=== PATIENT | female | born 1975 | race Caucasian/White ===

== ENCOUNTER 2017-11-10 17:38 | Emergency (ER) | payer SELFPAY ==
[2017-11-10] MEDS ORDERED: LEVSIN/MAALOX/LIDOC VISC PO ONE (17:39)
[2017-11-10 17:42] VITALS: BP 160/60; BMI 25.6
[2017-11-10] MEDS ORDERED: LEVSIN/MAALOX/LIDOC VISC ONE (17:42)
--- NOTE | 2017-11-10 17:42 | ED.ABDFE ---
HPI - Time seen Time seen: 17:40 - Complaint Chief Complaint Doctors Comments: Patient presented to the ED today with complaint of a two history of stomach pain worse today. The pain subxiphoid; denies vomiting or diarrhea. PMH - PMH Past Medical History: Anemia Past Surgical History: Yes Surgical History: , Hysterectomy, Ortho Surgery - Family History Family Medical History: Cancer - Social History Do you use any recreational Drugs:: No ROS - Review of Systems Eyes: No Symptoms Reported ENTM: No Symptoms Reported Respiratoy: No Symptoms Reported Cardiovascular: No Symptoms Reported Gastrointestinal/Abdominal: Abdominal Pain, Nausea Genitourinary: No Symptoms Reported Neurological: No Symptoms Reported Musculoskeletal: No Symptoms Reported Integumentary: No Symptoms Reported Hematologic/Lymphatic: No Symptoms Reported Endocrine: No Symptoms Reported Psychiatric: No Symptoms Reported All Other Systems: Reviewed and Negative PE - Vital Signs Vitals: Temperature 98.2 F Pulse Rate 84 Respiratory Rate 20 Blood Pressure 160/60 O2 Sat by Pulse Oximetry 98 - General Limitations: No Limitations General Appearance: Alert - Head Head Exam: Normal Inspection, Atraumatic - Eyes Eye exam: Normal Appearance, PERRL, EOMI - ENT ENT Exam: Normal Exam - Neck Neck Exam: Normal Inspection, Full ROM - Chest Chest Inspection: Normal Inspection - Respiratory Respiratory Exam: Normal Lung Sounds Bilat Respiratory Exam: Bilateral Clear to Auscultation - Cardiovascular Cardiovascular Exam: Regular Rate - Abdominal Exam Abdominal Exam: Normal Inspection Abdominal Tenderness: Epigastrium - Rectal Rectal Exam: Deferred - Back Back Exam: Normal Inspection - Extremeties Extremities Exam: Normal Inspection - External Exam: Female: Deferred : Speculum Exam (Female): Normal Speculum Exam : Bimanual Exam (female): Deferred - Neurologic Neurological Exam: Alert, Oriented X3, CN II-XII Intact - Psychiatric Psychiatric Exam: Normal Affect - Skin Skin Exam: Warm, Dry Course - Reevaluation 1st: Unchanged ROR - Labs Reviewed Laboratory Results Reviewed?: Yes (H Pylori positive) Result Diagrams: 11/10/17 17:47 11/10/17 17:47 Laboratory: Sodium 136 mmol/L (136-145) 11/10/17 17:47 Corrected Sodium TNP 11/10/17 17:47 Potassium 4.6 mmol/L (3.5-5.1) 11/10/17 17:47 Chloride 103 mmol/L (98-107) 11/10/17 17:47 Carbon Dioxide 26.7 mmol/L (21-32) 11/10/17 17:47 BUN 18 mg/dL (7-18) 11/10/17 17:47 Creatinine 0.72 mg/dL (0.55-1.02) 11/10/17 17:47 Est GFR (MDRD) Af Amer > 60 (>60) 11/10/17 17:47 Est GFR (MDRD) Non-Af > 60 (>60) 11/10/17 17:47 Glucose 101 mg/dL (65-99) H 11/10/17 17:47 Calcium 8.9 mg/dL (8.5-10.1) 11/10/17 17:47 Corrected Calcium 9.5 mg/dL (8.5-10.1) 11/10/17 17:47 Total Bilirubin 0.30 mg/dL (0.2-1.0) 11/10/17 17:47 AST 13 Units/L (15-37) L 11/10/17 17:47 ALT 19 Units/L (12-78) 11/10/17 17:47 Alkaline Phosphatase 80 Units/L (46-116) 11/10/17 17:47 C-Reactive Protein 3.90 mg/L (0-3.0) H 11/10/17 17:47 Total Protein 7.4 g/dL (6.4-8.2) 11/10/17 17:47 Albumin 3.3 g/dL (3.4-5.0) L 11/10/17 17:47 Globulin 4.1 g/dL (2.5-4.5) 11/10/17 17:47 Albumin/Globulin Ratio 0.8 Ratio (1.1-2.1) L 11/10/17 17:47 Amylase 46 Units/L (25-115) 11/10/17 17:47 Lipase 130 Units/L (73-393) 11/10/17 17:47 H. pylori IgG Antibody Positive (NEGATIVE) A 11/10/17 17:47 - Discharge Plan Condition: Stable - Follow ups/Referrals Follow ups/Referrals: DIONTE HARKINS [Primary Care Provider] - 3 days - Instructions
[2017-11-10 17:55] LABS: BASOPHILS # (AUTO) 0.1 X10^3/uL (0.0-0.1); BASOPHILS % (AUTO) 0.8 % (0.2-1.0); EOSINOPHILS # (AUTO) 0.1 x10^3/uL (0.0-0.2); EOSINOPHILS % (AUTO) 0.6 % (0.9-2.9); HEMATOCRIT 32.2 % (36.0-47.0); HEMOGLOBIN 10.6 g/dL (12.0-16.0); LYMPHOCYTES # (AUTO) 2.4 X10^3/uL (1.3-2.9); LYMPHOCYTES % (AUTO) 25.1 % (21.0-51.0); MEAN CORPUSCULAR HEMOGLOBIN 24.1 pg (27.0-34.0); MEAN PLATELET VOLUME 9.3 fL (7.4-11.0); MONOCYTES # (AUTO) 0.4 x10^3/uL (0.3-0.8); NEUTROPHILS # (AUTO) 6.8 x10^3/uL (2.2-4.8); NEUTROPHILS % (AUTO) 69.5 % (42.0-75.0); PLATELET COUNT 346 X10^3/uL (150.0-450.0); RED BLOOD COUNT 4.42 X10^6/uL (3.5-5.4); WHITE BLOOD COUNT 9.7 X10^3/uL (3.6-10.0)
[2017-11-10] MEDS ORDERED: BENTYL I.M. INJ 10 MG IM ONE ×2 (18:00→18:28)
[2017-11-10 18:07] LABS: ALANINE AMINOTRANSFERASE 19 Units/L (12-78); ALBUMIN 3.3 g/dL (3.4-5.0); ALKALINE PHOSPHATASE 80 Units/L (46-116); AMYLASE 46 Units/L (25-115); ASPARTATE AMINO TRANSFERASE 13 Units/L (15-37); BLOOD UREA NITROGEN 18 mg/dL (7-18); CALCIUM 8.9 mg/dL (8.5-10.1); CARBON DIOXIDE 26.7 mmol/L (21-32); CHLORIDE 103 mmol/L (98-107); COR CA(FOR HYPOALB) 9.5 mg/dL (8.5-10.1); CREATININE 0.72 mg/dL (0.55-1.02); LIPASE 130 Units/L (73-393); SODIUM 136 mmol/L (136-145); TOTAL PROTEIN 7.4 g/dL (6.4-8.2); eGFR BLACK RACES > 60 (>60); eGFR NON BLACK RACES > 60 (>60)
[2017-11-10 18:09] LABS: BILIRUBIN,URINE NEGATIVE (NEGATIVE); BLOOD/HEMOGLOBIN,URINE NEGATIVE (NEGATIVE); GLUCOSE, URINE NEGATIVE (NEGATIVE); KETONES,URINE NEGATIVE (NEGATIVE); LEUKOCYTE ESTERASE ,URINE 1+ (NEGATIVE); NITRITES,URINE POSITIVE (NEGATIVE); PROTEIN,URINE NEGATIVE (NEGATIVE); UROBILINOGEN,URINE NORMAL (NORMAL)
[2017-11-10 18:16] LABS: BAND NEUTROPHILS % 2 % (0-10); PLATELET MORPHOLOGY COMMENT NORMAL (NORMAL)
[2017-11-10 18:17] LABS: ANISOCYTOSIS 3+; BURR CELLS PRESENT; HYPOCHROMASIA 1+; MICROCYTOSIS 2+; TARGET CELLS PRESENT
[2017-11-10 18:19] LABS: APPEARANCE,URINE HAZY (CLEAR); BACTERIA,URINE 4+ /HPF (NEGATIVE); COLOR,URINE YELLOW (YELLOW); RBC,URINE 0-2 /HPF (NEGATIVE); SQUAMOUS EPITHELIAL CELL,UR NEGATIVE /HPF (NEGATIVE)
== END 2017-11-10 18:40 | disposition home or self-care (01) ==
LOC: ER 17:58
DX: K27.9 Peptic ulcer, site unspecified, unspecified as acute or chronic, without hemorrhage or perforation (principal); B96.29 Other Escherichia coli [E. coli] as the cause of diseases classified elsewhere
CPT/HCPCS: 36415; 80053; 81001; 82150; 83690; 85025; 86140; 86677; 87086; 87088; 87186; 96372; 99282; J0500